=== PATIENT | female | born 1975 | race Caucasian/White ===

== ENCOUNTER 2016-12-16 14:02 | Emergency (ER) | payer SELFPAY ==
[~2016-12-16] VITALS: Ht 142.2 cm; Wt 59.1 kg
[2016-12-16 14:11] VITALS: BP 146/87; TEMP 99.5
[2016-12-16] MEDS ORDERED: AMOXICILLIN 8751 TAB PO (17:10)
[2016-12-16] MEDS ORDERED: NORCO 325 MG-51 TAB PO (17:10)
[2016-12-16 17:23] VITALS: PULSE 76
== END 2016-12-16 17:24 | disposition home or self-care (01) ==
LOC: COL.ER 14:02
DX: S01.25XA Open bite of nose, initial encounter (principal); S01.151A Open bite of right eyelid and periocular area, initial encounter; S01.451A Open bite of right cheek and temporomandibular area, initial encounter; S01.551A Open bite of lip, initial encounter; W54.0XXA Bitten by dog, initial encounter; Y92.009 Unspecified place in unspecified non-institutional (private) residence as the place of occurrence of the external cause

== ENCOUNTER 2022-12-01 19:14 | Emergency (ER) | payer SELFPAY ==
[~2022-12-01] VITALS: Ht 144.8 cm; Wt 59.1 kg
[~2022-12-01 19:14] MED LIST: AMOXICILLIN 8751 TAB PO; NORCO 325 MG-51 TAB PO
[2022-12-01 19:17] VITALS: TEMP 98.1
[2022-12-01 19:39] LABS: COLLECTION METHOD CLEAN CATCH
[2022-12-01 19:50] LABS: MUCOUS Present (NOT PRESENT); URINE BACTERIA None Seen /hpf (NONE SEEN); URINE RBC >50 /hpf (0-2)
[2022-12-01 19:51] LABS: URINE APPEARANCE Cloudy (CLEAR/HAZY); URINE BLOOD 3+ (NEGATIVE); URINE COLOR Yellow (YELLOW); URINE GLUCOSE Negative (NEGATIVE); URINE KETONE Negative (NEGATIVE); URINE NITRATE Negative (NEGATIVE); URINE PROTEIN(semi-quant) 3+ (NEGATIVE); URINE UROBILINOGEN 0.2 E.U/dL (0.2-1.0)
[2022-12-01 19:51] LABS: BASO % 0.3 % (0.0-2.0); EOS # 0.1 K/mm3 (0.0-0.7); EOS % 0.7 % (0.0-4.0); GRAN # 6.6 K/mm3 (1.4-6.5); GRAN % 61.8 % (42.2-75.2); LYMPH # 3.2 K/mm3 (1.2-3.4); LYMPH % 30.3 % (20.0-51.0); MEAN CELL VOLUME 86 fl (80.0-100.0); MEAN CORPUSCULAR HEMOGLOBIN 29 pg (27-31); MEAN CORPUSCULAR HGB CONC 33 g/dl (33.0-37.0); MEAN PLATELET VOLUME 9.1 fl (7.4-10.4); MONO # 0.7 K/mm3 (0.1-0.6); MONO % 6.6 % (1.7-9.3); PLATELET COUNT 395 K/mm3 (130-400); RED BLOOD COUNT 4.55 M/mm3 (4.10-5.30); REDCELL DISTRIBUTION WIDTH-CV 13.5 % (11.5-14.5)
[2022-12-01 20:00] LABS: BILIRUBIN,TOTAL 0.3 mg/dL (0.2-1.2); C-REACTIVE PROTEIN 0.25 mg/dL (0.00-0.50); CALCIUM 9.5 mg/dL (8.4-10.2); CREATININE, serum 0.74 mg/dL (0.57-1.11); POTASSIUM 3.7 mmol/L (3.5-4.5); TOTAL PROTEIN 7.9 gm/dL (6.2-8.1)
[2022-12-01] MEDS ORDERED: CEFTIN500 MG PO (20:11)
[2022-12-01 20:40] VITALS: BP 126/70; PULSE 80
== END 2022-12-01 21:18 | disposition home or self-care (01) ==
LOC: COL.ER 19:14
PROVIDERS: Physician Assistant
DX: N30.91 Cystitis, unspecified with hematuria (principal)
CPT/HCPCS: J0696; J1885; J7030